=== PATIENT | male | born 1970 | race Two or more races ===

== ENCOUNTER 2023-03-12 12:04 | Emergency (ER) | payer OTHER ==
[~2023-03-12] VITALS: Ht 175.3 cm; Wt 93.5 kg
[2023-03-12 12:17] VITALS: BP 126/97; PULSE 76; RESP 18; TEMP 98; O2SAT 95
[2023-03-12] MEDS ORDERED: cefTRIAXone SOD 1,000 MG VL IM ONE (13:15)
[2023-03-12] MEDS ORDERED: ACETAMINOPHEN 500 MG TAB PO ONE (13:15)
[2023-03-12] MEDS ORDERED: BENZ200C64 PO (13:33)
[2023-03-12] MEDS ORDERED: AZIT500T66 PO (13:33)
== END 2023-03-12 13:39 | disposition home or self-care (01) ==
LOC: ER 12:04 → EEVIPCON 12:04 → ER 13:38
DX: J20.9 Acute bronchitis, unspecified (principal); J02.9 Acute pharyngitis, unspecified
CPT/HCPCS: 71045; 96372; 99283; J0696

== ENCOUNTER 2024-10-28 16:55 | Emergency (ER) | payer BC, OTHER ==
[~2024-10-28] VITALS: Ht 175.3 cm; Wt 84.0 kg
[~2024-10-28 16:55] MED LIST: AZIT500T66 PO; BENZ200C64 PO
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
--- NOTE | 2024-10-28 17:38 | ECG ---
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
[2024-10-28] MEDS ORDERED: IBUP-1455 PO (17:51)
[2024-10-28] MEDS ORDERED: METH-1181 PO (17:51)
[2024-10-28] MEDS: KETOROLAC TROMETH 60MG/2ML VIAL IM ONE (18:03)
[2024-10-28 18:13] VITALS: BP 132/87; PULSE 65; RESP 16; TEMP 98.7; O2SAT 97
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
== END 2024-10-28 18:14 | disposition home or self-care (01) ==
LOC: ER 17:04
DX: M25.511 Pain in right shoulder (principal); R07.89 Other chest pain; M54.50 Low back pain, unspecified; V89.2XXA Person injured in unspecified motor-vehicle accident, traffic, initial encounter; Y93.89 Activity, other specified; Y92.410 Unspecified street and highway as the place of occurrence of the external cause; Y99.8 Other external cause status
CPT/HCPCS: 72100; 73030; 93005; 96372; 99284; J1885